=== PATIENT | male | born 1955 | race Caucasian/White ===

== ENCOUNTER 2022-04-23 02:35 | Emergency (ER) | payer MEDICARE, SELFPAY ==
[2022-04-23 02:45] VITALS: BP 167/106; PULSE 81; RESP 17; TEMP 36.7; O2SAT 98; BMI 28.7
[2022-04-23] MEDS: LIDOCAINE 2% (GLYDO) 6 ML GEL TOP (03:00)
--- NOTE | 2022-04-23 03:13 | ED.MALEGU ---
HPI - Male Genitourinary General Chief complaint: Urogenital-Male Stated complaint: unable urinate Time Seen by Provider: 04/23/22 02:47 History of Present Illness HPI Narrative: 66M nonsmoker without any significant chronic medical history presents with a chief complaint of an inability to urinate over the past few hours. He denies any history of urinary retention, recent trauma or injury. He has no fever, chills or back pain. He is taken no new medications whether prescription or [id number]. He states that he had recently driven from [place] up to here to visit friends and had a stressful drive, did not drink as much as normal and also was holding his urine. He is otherwise well and free of complaint. He denies any lower extremity numbness, tingling or weakness. Related Data Previous Rx's Medication Instructions Recorded tamsulosin 0.4 mg capsule (Flomax) 0.4 mg PO DAILY #30 caps 04/23/22 Allergies Allergy/AdvReac Type Severity Reaction Status Date / Time No Known Drug Allergies Allergy Verified 04/23/22 02:59 Review of Systems Review of Systems Narrative: GENERAL: Denies chills, fatigue, malaise, fever, sweats. HEENT: Denies sinus pain, ear pain, sore throat, difficulty swallowing, dizziness. RESPIRATORY: Denies dyspnea, cough, wheezing, hemoptysis, sputum. CARDIOVASCULAR: Denies chest pain, palpitations, orthopnea, edema, GASTROINTESTINAL: See HPI : Denies dysuria, frequency, incontinence, hematuria, urinary retention. MUSCULOSKELETAL: denies weakness, joint pain, or bony pain SKIN: Denies rash, skin lesions, or other NEUROLOGIC: Denies weakness, headache, numbness, change in speech, confusion, seizures, incoordination. PSYCHIATRIC: No concerning psychosocial issues. 12 point review of systems is negative except for those stated above Patient History Social History Smoking Status: Never smoker Exam Narrative Exam Narrative: GEN: AOx3 and in mild distress EYES: Pupils are equal, round, and reactive to light and accommodation. Extraoccular muscles are intact bilaterally. There is no subconjunctival hemorrhage or exudate. CHEST: Lungs are clear to auscultation bilaterally and free of wheezes, rales, or rhonchi. Heart rate is regular rhythm, there are no murmurs, clicks, rubs, or gallops. There is no chest wall tenderness. ABD: Abdomen is soft and only minimally tender over this bladder. There is no guarding or rebound. Bowel sounds are normal in all 4 quadrants. There is no mass or organomegaly. EXT: Full painless ROM of all extremities with no loss of sensation or strength. SKIN: Warm, pink, and dry. No erythema or rash Initial Vital Signs Initial Vital Signs: Vital Signs Temperature 98.1 F 04/23/22 02:45 Pulse Rate 81 04/23/22 02:45 Respiratory Rate 17 04/23/22 02:45 Blood Pressure 167/106 H 04/23/22 02:45 Pulse Oximetry 98 04/23/22 02:45 Oxygen Delivery Method 04/23/22 02:45 Course Course Course Narrative: Nursing performed a near immediate bedside ultrasound noting >560mL and 16 [place] catheter easily placed with prompt drainage of well over 500 cc of urine allowing the patient to experience a near immediate and total relief of symptoms Orders Ordered: ED Orders 04/23/22 02:50 Urine Culture Stat Urine Microscopic Stat Discontinued Medications Lidocaine HCl (Lidocaine 2% (Glydo) 6 Ml Gel) 6 ml TOP NOW ONE Stop: 04/23/22 02:59 Last Admin: 04/23/22 03:00 Dose: 6 ml Documented By: CALVIN Tamsulosin HCl (Tamsulosin 0.4 Mg Capsule) 0.4 mg PO NOW ONE Stop: 04/23/22 03:34 Last Admin: 04/23/22 03:52 Dose: 0.4 mg Documented By: CALVIN Vital Signs Vital signs: Vital Signs - 8 hr 04/23/22 02:45 04/23/22 04:54 Temperature 98.1 F Pulse Rate 81 84 Respiratory Rate 17 16 Blood Pressure 167/106 H 150/88 H Pulse Oximetry 98 98 Oxygen Delivery Method Room Air Room Air MDM - Male Genitourinary Lab Data Labs: Lab Results 04/23/22 Range/Units 02:50 Urine RBC 5-10/hpf H (0-5/HPF) Urine WBC 1-5/hpf (0-5/HPF) Urine Bacteria None seen (None) Ur Culture Indicated? Culture not indicate Micro UA Comment * Urine Dip Bedside Urine Glucose Negative Bedside Urine Bilirubin - Negative Bedside Urine Ketone - Negative Urine Specific [place] 1.020 Bedside Urine Occult Blood +++ Bedside Urine pH 6 Bedside Urine Protein + 30 Bedside Urine Urobilinogen - Negative Bedside Urine Nitrite - Negative Bedside Urine Leukocytes + 70 Esterase Discharge Plan Departure Patient Disposition: Home Clinical Impression: Acute urinary retention Instructions: DI for Urinary Retention in Men Activity Restrictions/Additional Instructions: *You have been diagnosed with [ acute urinary retention] *What to do: *Please continue to take your regular medications as directed. [ x] New medication prescriptions sent to your pharmacy: [ [facility] ] [ ] New medication written as a paper prescription [ ] No new medications given * as we discussed, please contact your primary care provider for help getting in with a urologist. Please call no later than Monday and let them know that you were seen in the emergency department with a diagnosis of urinary retention and that we would like you seen in follow-up. *If you do not have a primary care provider please contact the [facility] Resource line at [phone]. They will ask some questions about your medical history and help get you set up with a doctor in the community. *Return to Emergency Department if you should have any new, worsening or concerning symptoms, such as [fever greater than 101 F, shaking chills, worsening pain, persistent vomiting or other bothersome symptoms] Prescriptions: New tamsulosin [Flomax] 0.4 mg capsule 0.4 mg PO DAILY Qty: 30 0RF Visit Report Forms: Patient Portal/API
[2022-04-23 03:16] LABS: Bacteria Urine None Seen; RBC Urine 5-10/HPF (0-5/HPF); WBC Urine 1-5/HPF (0-5/HPF)
[2022-04-23] MEDS: TAMSULOSIN 0.4 MG CAPSULE PO (03:52)
[2022-04-23 04:54] VITALS: BP 150/88; PULSE 84; RESP 16; O2SAT 98
== END 2022-04-23 04:25 | disposition home or self-care (01) ==
PROVIDERS: Emergency Provider Emergency Medicine
DX: R33.8 Other retention of urine (principal)
CPT/HCPCS: 51798; 81003; 81015; 87086; 99283; 99284